=== PATIENT | female | born 1985 | race Two or more races ===

== ENCOUNTER 2020-04-08 09:06 | Emergency (ER) | payer SELFPAY ==
--- NOTE | 2020-04-08 09:14 | EDM.PDOC ---
ED HPI GENERAL MEDICAL PROBLEM - General Stated Complaint: CHEST PAIN Time Seen by Provider: 04/08/20 09:11 Source of Information: Reports: Patient History Limitations: Reports: No Limitations - History of Present Illness INITIAL COMMENTS - FREE TEXT/NARRATIVE: 34-year-old female no past medical history presents for chest pain and shortness of breath. Patient notes that she had a similar episode in [place] that was worked up but no etiology could be identified. Pain started last night when she was at rest and has been continuing through this morning. Nonexertional, worse with deep inspiration. Pain is in left anterior chest radiating to back. Denies cough or fever. There is mild associated shortness of breath as it hurts to take a deep breath in. She notes that her right leg sometimes "feels funny" described as numbness and tingling, but denies lower extremity pain, swelling, redness. No history of blood clots. She notes that she might be as her last menstrual period was at the end of January, but she has taken at home test which have all been negative. chest/back Pain Score (Numeric/FACES): 9 - Related Data Allergies Allergy/AdvReac Type Severity Reaction Status Date / Time No Known Allergies Allergy Verified 04/08/20 09:25 Home Meds: Home Meds . [No Known Home Meds] 04/08/20 [History] ED ROS GENERAL - Review of Systems Review Of Systems: Comprehensive ROS is negative, except as noted in HPI. ED EXAM, GENERAL - Physical Exam Exam: See Below Exam Limited By: No Limitations General Appearance: Alert, WD/WN, No Apparent Distress Ears: Normal External Exam Nose: Normal Inspection Throat/Mouth: Normal Inspection, Normal Oropharynx, Normal Voice, No Airway Compromise Head: Atraumatic, Normocephalic Neck: Normal Inspection Respiratory/Chest: No Respiratory Distress, Lungs Clear, Normal Breath Sounds, No Accessory Muscle Use, Chest Non-Tender Cardiovascular: Normal Peripheral Pulses, Regular Rate, Rhythm, No Edema Extremities: Normal Inspection, Other (Lower extremities are bilaterally symmetric without erythema, tenderness to palpation, edema, swelling) Neurological: Alert Psychiatric: Normal Affect, Normal Mood Skin Exam: Warm, Dry, Intact, Normal Color #1 Interpretation EKG Date: 04/08/20 Time: 09:26 Rhythm: NSR Rate (Beats/Min): 97 [place]: Normal P-Wave: Present QRS: Normal ST-T: Normal QT: Normal OH/PQ Interval: 141 Comparison: NA - No Prior EKG EKG Interpretation Comments: Normal EKG without signs of ischemia or right heart strain Course - Vital Signs Last Recorded V/S: Last Vital Signs Temp 98.3 F 04/08/20 09:45 Pulse 88 04/08/20 11:34 Resp 16 04/08/20 11:34 BP 133/94 H 04/08/20 11:34 Pulse Ox 100 04/08/20 11:34 - Orders/Labs/Meds Orders: Active Orders 24 hr Category Date Time Status EKG Documentation Completion [RC] STAT Care 04/08/20 09:22 Active Sodium Chloride 0.9% [Saline Flush] Med 04/08/20 09:22 Active 10 ml FLUSH ASDIRECTED PRN Sodium Chloride 0.9% [Saline Flush] Med 04/08/20 09:22 Active 2.5 ml FLUSH ASDIRECTED PRN Saline Lock Insert [OM.PC] Stat Oth 04/08/20 09:22 Ordered Medication Orders Sodium Chloride (Saline Flush) 10 ml FLUSH ASDIRECTED PRN PRN Reason: Keep Vein Open Last Admin: 04/08/20 09:32 Dose: 10 ml Documented by: NICOLE Sodium Chloride (Saline Flush) 2.5 ml FLUSH ASDIRECTED PRN PRN Reason: Keep Vein Open Last Admin: 04/08/20 09:32 Dose: 2.5 ml Documented by: NICOLE Labs: Laboratory Tests 04/08/20 04/08/20 04/08/20 Range/Units 09:16 09:16 09:16 WBC 7.79 (4.0-11.0) K/uL RBC 5.08 (4.30-5.90) M/uL Hgb 11.5 L (12.0-16.0) g/dL Hct 38.0 (36.0-46.0) % MCV 74.8 L (80.0-98.0) fL MCH 22.6 L (27.0-32.0) pg MCHC 30.3 L (31.0-37.0) g/dL RDW Std Deviation 43.7 (28.0-62.0) fl RDW Coeff of Yovana 16 H (11.0-15.0) % Plt Count 353 (150-400) K/uL MPV 10.10 (7.40-12.00) fL Neut % (Auto) 64.6 (48.0-80.0) % Lymph % (Auto) 20.3 (16.0-40.0) % Mchenry % (Auto) 9.0 (0.0-15.0) % Eos % (Auto) 5.5 (0.0-7.0) % Baso % (Auto) 0.6 (0.0-1.5) % Neut # (Auto) 5.0 (1.4-5.7) K/uL Lymph # (Auto) 1.6 (0.6-2.4) K/uL Mchenry # (Auto) 0.7 (0.0-0.8) K/uL Eos # (Auto) 0.4 (0.0-0.7) K/uL Baso # (Auto) 0.1 (0.0-0.1) K/uL Nucleated RBC % 0.0 /100WBC Nucleated RBCs # 0 K/uL INR APTT (18.6-31.3) SEC D-Dimer, Quantitative 0.69 H (0.0-0.50) mg/L FEU Sodium 139 (136-145) mmol/L Potassium 3.5 (3.5-5.1) mmol/L Chloride 104 (98-107) mmol/L Carbon Dioxide 22.5 (21.0-32.0) mmol/L BUN 11 (7.0-18.0) mg/dL Creatinine 0.8 (0.6-1.0) mg/dL Est Cr Clr Drug Dosing 83.95 mL/min Estimated GFR (MDRD) > 60.0 ml/min Glucose 118 H (74-106) mg/dL Calcium 8.9 (8.5-10.1) mg/dL Magnesium 1.9 (1.8-2.4) mg/dL Total Bilirubin 0.2 (0.2-1.0) mg/dL AST 20 (15-37) IU/L ALT 35 (14-63) IU/L Alkaline Phosphatase 76 (46-116) U/L Troponin I < 0.050 (0.000-0.056) ng/mL B-Natriuretic Peptide (<100) PG/ML Total Protein 8.0 (6.4-8.2) g/dL Albumin 3.6 (3.4-5.0) g/dL Globulin 4.4 H (2.6-4.0) g/dL Albumin/Globulin Ratio 0.8 L (0.9-1.6) Lipase 125 (73-393) U/L HCG, Quant mIU/mL Influenza Type A RNA (NEGATIVE) Influenza Type B RNA (NEGATIVE) SARS-CoV-2 RNA (SUSANNA) (NEGATIVE) 04/08/20 04/08/20 04/08/20 Range/Units 09:16 09:16 09:16 WBC (4.0-11.0) K/uL RBC (4.30-5.90) M/uL Hgb (12.0-16.0) g/dL Hct (36.0-46.0) % MCV (80.0-98.0) fL MCH (27.0-32.0) pg MCHC (31.0-37.0) g/dL RDW Std Deviation (28.0-62.0) fl RDW Coeff of Yovana (11.0-15.0) % Plt Count (150-400) K/uL MPV (7.40-12.00) fL Neut % (Auto) (48.0-80.0) % Lymph % (Auto) (16.0-40.0) % Mchenry % (Auto) (0.0-15.0) % Eos % (Auto) (0.0-7.0) % Baso % (Auto) (0.0-1.5) % Neut # (Auto) (1.4-5.7) K/uL Lymph # (Auto) (0.6-2.4) K/uL Mchenry # (Auto) (0.0-0.8) K/uL Eos # (Auto) (0.0-0.7) K/uL Baso # (Auto) (0.0-0.1) K/uL Nucleated RBC % /100WBC Nucleated RBCs # K/uL INR 0.95 APTT 24.6 (18.6-31.3) SEC D-Dimer, Quantitative (0.0-0.50) mg/L FEU Sodium (136-145) mmol/L Potassium (3.5-5.1) mmol/L Chloride (98-107) mmol/L Carbon Dioxide (21.0-32.0) mmol/L BUN (7.0-18.0) mg/dL Creatinine (0.6-1.0) mg/dL Est Cr Clr Drug Dosing mL/min Estimated GFR (MDRD) ml/min Glucose (74-106) mg/dL Calcium (8.5-10.1) mg/dL Magnesium (1.8-2.4) mg/dL Total Bilirubin (0.2-1.0) mg/dL AST (15-37) IU/L ALT (14-63) IU/L Alkaline Phosphatase (46-116) U/L Troponin I (0.000-0.056) ng/mL B-Natriuretic Peptide 10 (<100) PG/ML Total Protein (6.4-8.2) g/dL Albumin (3.4-5.0) g/dL Globulin (2.6-4.0) g/dL Albumin/Globulin Ratio (0.9-1.6) Lipase (73-393) U/L HCG, Quant < 1.0 mIU/mL Influenza Type A RNA (NEGATIVE) Influenza Type B RNA (NEGATIVE) SARS-CoV-2 RNA (SUSANNA) (NEGATIVE) 04/08/20 Range/Units 11:35 WBC (4.0-11.0) K/uL RBC (4.30-5.90) M/uL Hgb (12.0-16.0) g/dL Hct (36.0-46.0) % MCV (80.0-98.0) fL MCH (27.0-32.0) pg MCHC (31.0-37.0) g/dL RDW Std Deviation (28.0-62.0) fl RDW Coeff of Yovana (11.0-15.0) % Plt Count (150-400) K/uL MPV (7.40-12.00) fL Neut % (Auto) (48.0-80.0) % Lymph % (Auto) (16.0-40.0) % Mchenry % (Auto) (0.0-15.0) % Eos % (Auto) (0.0-7.0) % Baso % (Auto) (0.0-1.5) % Neut # (Auto) (1.4-5.7) K/uL Lymph # (Auto) (0.6-2.4) K/uL Mchenry # (Auto) (0.0-0.8) K/uL Eos # (Auto) (0.0-0.7) K/uL Baso # (Auto) (0.0-0.1) K/uL Nucleated RBC % /100WBC Nucleated RBCs # K/uL INR APTT (18.6-31.3) SEC D-Dimer, Quantitative (0.0-0.50) mg/L FEU Sodium (136-145) mmol/L Potassium (3.5-5.1) mmol/L Chloride (98-107) mmol/L Carbon Dioxide (21.0-32.0) mmol/L BUN (7.0-18.0) mg/dL Creatinine (0.6-1.0) mg/dL Est Cr Clr Drug Dosing mL/min Estimated GFR (MDRD) ml/min Glucose (74-106) mg/dL Calcium (8.5-10.1) mg/dL Magnesium (1.8-2.4) mg/dL Total Bilirubin (0.2-1.0) mg/dL AST (15-37) IU/L ALT (14-63) IU/L Alkaline Phosphatase (46-116) U/L Troponin I (0.000-0.056) ng/mL B-Natriuretic Peptide (<100) PG/ML Total Protein (6.4-8.2) g/dL Albumin (3.4-5.0) g/dL Globulin (2.6-4.0) g/dL Albumin/Globulin Ratio (0.9-1.6) Lipase (73-393) U/L HCG, Quant mIU/mL Influenza Type A RNA NEGATIVE (NEGATIVE) Influenza Type B RNA NEGATIVE (NEGATIVE) SARS-CoV-2 RNA (SUSANNA) NEGATIVE (NEGATIVE) Meds: Medications Generic Name Dose Route Start Last Admin Trade Name Freq PRN Reason Stop Dose Admin Sodium Chloride 10 ml 04/08/20 09:22 04/08/20 09:32 Saline Flush FLUSH 10 ml ASDIRECTED PRN Administration Keep Vein Open Sodium Chloride 2.5 ml 04/08/20 09:22 04/08/20 09:32 Saline Flush FLUSH 2.5 ml ASDIRECTED PRN Administration Keep Vein Open Discontinued Medications Generic Name Dose Route Start Last Admin Trade Name Chuy PRN Reason Stop Dose Admin Acetaminophen 1,000 mg 04/08/20 09:22 04/08/20 09:30 Tylenol Extra Strength PO 04/08/20 09:23 1,000 mg ONETIME ONE Administration Iopamidol 80 ml 04/08/20 10:51 04/08/20 10:52 Isovue Multipack-370 (76%) IVPUSH 04/08/20 10:52 80 ml ONETIME ONE Administration Ketorolac Tromethamine 15 mg 04/08/20 11:21 04/08/20 11:31 Toradol IVPUSH 04/08/20 11:22 15 mg ONETIME ONE Administration - Re-Assessments/Exams Free Text/Narrative Re-Assessment/Exam: 04/08/20 09:26 We will get lab work including quantitative beta-hCG, D-dimer, troponin. I have a low suspicion of ACS or other emergent cardiopulmonary pathology considering patient's reassuring history and benign physical exam as well as normal EKG. 04/08/20 10:19 test is negative. D-dimer is mildly elevated to 0.69. Will get CT imaging to rule out pulmonary embolism 04/08/20 11:[address] scan does not reveal any overt saddle pulmonary embolism. There are changes consistent with Covid infection, will get a Covid swab. We will follow up official read. Toradol ordered for pain 04/08/20 11:43 CTA radiology read does not reveal any evidence of pulmonary embolism. Does show changes consistent with viral pneumonia versus atelectasis. Covid swab is pending 04/08/20 12:57 Patient's Covid swab and influenza swab are negative. Will treat for atypical pneumonia with azithromycin. Recommend follow-up with PMD for further diagnostic work-up. Departure - Departure Time of Disposition: 12:57 Disposition: Home, Self-Care 01 Condition: Good Clinical Impression: Atypical pneumonia - Discharge Information Instructions: Community-Acquired Pneumonia, Adult, [id number], Nonspecific Chest Pain, Adult, [id number] Referrals: PCP,None [Primary Care Provider] - Additional Instructions: Your work-up shows evidence of viral pneumonia. However your Covid and influenza swabbing were negative. In case this is actually a bacterial pneumonia. Your diagnostic work-up is uncertain, so you should follow-up with your primary care physician for further work-up. If you develop difficulty breathing, worsening chest pain, or any other concerning symptoms you are encouraged to come back to the emergency department for reassessment. The following information is given to patients seen in the emergency department who are being discharged to home. This information is to outline your options for follow-up care. We provide all patients seen in our emergency department with a follow-up referral. The need for follow-up, as well as the timing and circumstances, are variable depending upon the specifics of your emergency department visit. If you don't have a primary care physician on staff, we will provide you with a referral. We always advise you to contact your personal physician following an emergency department visit to inform them of the circumstance of the visit and for follow-up with them and/or the need for any referrals to a consulting specialist. The emergency department will also refer you to a specialist when appropriate. This referral assures that you have the opportunity for follow-up care with a specialist. All of these measure are taken in an effort to provide you with optimal care, which includes your follow-up. Under all circumstances we always encourage you to contact your private physician who remains a resource for coordinating your care. When calling for follow-up care, please make the office aware that this follow-up is from your recent emergency room visit. If for any reason you are refused follow-up, please contact the [facility] Emergency Department at and asked to speak to the emergency department charge nurse. Please follow up with your primary care physician. If you do not have a primary care physician, see below: [facility] [address] [place] [id number] [facility] [address] [place] [id number] Sepsis Event Note (ED) - Focused Exam Vital Signs: Vital Signs Temp Pulse Resp BP Pulse Ox 04/08/20 11:34 88 16 133/94 H 100 04/08/20 10:30 81 16 116/83 100 04/08/20 10:00 80 16 122/77 100 04/08/20 09:45 98.3 F 81 16 135/83 100 04/08/20 09:32 98.3 F 93 16 140/91 H 100 04/08/20 09:18 96.7 F L 101 H 16 162/97 H 100 - My Orders Last 24 Hours: My Active Orders 04/08/20 09:22 EKG Documentation Completion [RC] STAT Sodium Chloride 0.9% [Saline Flush] 10 ml FLUSH ASDIRECTED PRN Sodium Chloride 0.9% [Saline Flush] 2.5 ml FLUSH ASDIRECTED PRN Saline Lock Insert [OM.PC] Stat - Assessment/Plan Last 24 Hours: My Active Orders 04/08/20 09:22 EKG Documentation Completion [RC] STAT Sodium Chloride 0.9% [Saline Flush] 10 ml FLUSH ASDIRECTED PRN Sodium Chloride 0.9% [Saline Flush] 2.5 ml FLUSH ASDIRECTED PRN Saline Lock Insert [OM.PC] Stat
[2020-04-08] MEDS ORDERED: Sodium Chloride 0.9% 10 ML Syringe FLUSH PRN (09:22)
[2020-04-08] MEDS ORDERED: Sodium Chloride 0.9% 2.5 ML Syringe FLUSH PRN (09:22)
[2020-04-08] MEDS ORDERED: Acetaminophen 500 MG Tab PO ONE (09:22)
[2020-04-08 09:56] LABS: BLOOD UREA NITROGEN,BUN 11 mg/dL (7.0-18.0); CARBON DIOXIDE,CO2 22.5 mmol/L (21.0-32.0); CHLORIDE,CL 104 mmol/L (98-107); GLUCOSE RANDOM 118 mg/dL (74-106); LIPASE 125 U/L (73-393); POTASSIUM,K 3.5 mmol/L (3.5-5.1); SODIUM,NA 139 mmol/L (136-145)
[2020-04-08] MEDS ORDERED: Iopamidol 755 MG/ML 500 ML Multipack Bottle IVPUSH ONE (10:51)
[2020-04-08] MEDS ORDERED: Ketorolac 30 MG/ML SDV IVPUSH ONE (11:21)
--- NOTE | 2020-04-08 11:40 | CT ---
INDICATION: Pleuritic pain and elevated D-dimer COMPARISON: None TECHNIQUE: : CT examination of the chest was performed with the uneventful intravenous administration of 80 cc of Isovue 370 while thin axial sections were obtained from above the apices of the lungs to the lung bases. Please note that all CT scans at this facility use dose modulation, iterative reconstruction, and/or weight-based dosing when appropriate to reduce radiation dose to as low as reasonably achievable. FINDINGS: : HEART and MEDIASTINUM: The heart size is normal. There is no mediastinal or hilar adenopathy or mass. There is no pericardial effusion. PULMONARY ARTERIAL CIRCULATION: There is no visible intraluminal filling defect to suggest pulmonary embolus. LUNGS: Bilateral and symmetric distribution of patchy multifocal ground-glass. This is primarily in a dependent distribution in the setting of low lung volumes. This could be simple atelectasis though viral pneumonia should be considered if appropriate clinically. PLEURAL SPACES: There is no pleural effusion, pneumothorax or pleural based mass. VISUALIZED UPPER ABDOMEN: Unusual configuration of the liver as visualized. This is incompletely evaluated on this study but there is no focal mass or biliary ductal dilatation. This may be congenital or postsurgical. Correlate with clinical history. Dedicated imaging of the liver may be indicated at a clinically appropriate time if this is not a known process. OSSEOUS STRUCTURES: Age-appropriate appearance. No acute fracture or destructive process. TUBES and LINES: None. IMPRESSION: 1. There is no finding of pulmonary embolus. 2. Bilateral and symmetric distribution of patchy multifocal ground-glass. This is primarily in a dependent distribution in the setting of low lung volumes. This could be simple atelectasis though viral pneumonia should be considered if appropriate clinically. 3. Abnormal configuration of the liver. Please review the comment regarding this finding. Please note that all CT scans at this facility use dose modulation, iterative reconstruction, and/or weight-based dosing when appropriate to reduce radiation dose to as low as reasonably achievable. Dictated by Diego Plascencia MD @ Apr 08 2020 11:30AM Signed by Dr. Diego Plascencia @ Apr 08 2020 11:38AM
[2020-04-08 12:22] LABS: CORONAVIRUS COVID-19 NAA NEGATIVE (NEGATIVE); INFLUENZA A NAA NEGATIVE (NEGATIVE); INFLUENZA B NAA NEGATIVE (NEGATIVE)
== END 2020-04-08 13:20 | disposition home or self-care (01) ==
LOC: MW.ED 09:06
DX: J18.9 Pneumonia, unspecified organism (principal); Z20.828 Contact with and (suspected) exposure to other viral communicable diseases
CPT/HCPCS: 0240U; 71275; 80053; 83690; 83735; 83880; 84484; 84702; 85025; 85379; 85610; 85730; 93005; 96374; 99285; A9270; J1885; Q9967

== ENCOUNTER 2023-06-22 08:52 | Emergency (ER) | payer SELFPAY ==
[2023-06-22 09:10] LABS: BASOPHILS ABSOLUTE AUTO 0.05 K/uL (0.00-0.20); EOSINOPHILS ABSOLUTE AUTO 0.12 K/uL (0.00-0.45); EOSINOPHILS PERCENT AUTO 2.4 % (0.0-6.0); HEMATOCRIT 41.6 % (37.0-47.0); HEMOGLOBIN 13.5 g/dL (12.0-16.0); IMMATURE GRAN ABSOLUTE AUTO 0.01 K/uL (0.00-0.05); IMMATURE GRAN PERCENT AUTO 0.2 % (0.0-0.4); LYMPHOCYTES PERCENT AUTO 32.6 % (24.0-44.0); MEAN CORPUSCULAR HGB CONC 32.5 g/dL (32.0-36.0); MEAN CORPUSCULAR VOLUME 83.2 fL (83.0-99.0); MEAN PLATELET VOLUME 9.5 fL (9.4-12.3); MONOCYTES ABSOLUTE AUTO 0.43 K/uL (0.00-0.80); MONOCYTES PERCENT AUTO 8.8 % (0.0-8.0); PLATELET COUNT,PLT 322 K/uL (150-400); WHITE BLOOD CELL COUNT,WBC 4.91 K/uL (3.9-11.3)
[2023-06-22] MEDS: Sodium Chloride 0.9% 2.5 ML Syringe FLUSH PRN (09:25)
[2023-06-22] MEDS: Sodium Chloride 0.9% 10 ML Syringe FLUSH PRN (09:26)
[2023-06-22 09:33] LABS: BLOOD UREA NITROGEN,BUN 15 mg/dL (7.0-18.0); CALCIUM 9.4 mg/dL (8.5-10.1); CARBON DIOXIDE,CO2 24.6 mmol/L (21.0-32.0); CHLORIDE,CL 103 mmol/L (98-107); CREATININE 0.8 mg/dL (0.6-1.0); EST CRCL DRUG DOSING (CG) 81.53 mL/min; GLUCOSE RANDOM 85 mg/dL (74-106); POTASSIUM,K 4.2 mmol/L (3.5-5.1); SODIUM,NA 140 mmol/L (136-145)
[2023-06-22 09:34] LABS: ESTIMATED GFR 96 mL/min (>60)
[2023-06-22] MEDS: Aspirin 325 MG Tab PO ONE (10:04)
== END 2023-06-22 12:21 | disposition home or self-care (01) ==
LOC: MW.ED 08:52
DX: R07.9 Chest pain, unspecified (principal)
CPT/HCPCS: 36415; 71046; 80048; 81025; 84484; 85025; 85379; 99285; A9270; J3490; 93010; 99283